=== PATIENT | male | born 1945 | race Caucasian/White ===

== ENCOUNTER → 2024-03-08 14:37 | Outpatient (REF) | payer OTHER, MEDICARE, SELFPAY | LOC: RAD 14:37 | PROVIDERS: ATTENDING PHYSICIAN Nurse Practitioner Family | DX: R47.89 Other speech disturbances (principal) | CPT/HCPCS: 70450 ==

== ENCOUNTER → 2024-07-24 11:12 | Outpatient (REF) | payer OTHER, SELFPAY | LOC: HWRCS 11:12 | PROVIDERS: ATTENDING PHYSICIAN Student in an Organized Health Care Education/Training Program; FAMILY PHYSICIAN Nurse Practitioner Family | DX: I10 Essential (primary) hypertension (principal); I35.0 Nonrheumatic aortic (valve) stenosis | CPT/HCPCS: 93306 ==

== ENCOUNTER 2025-04-20 11:44 | Emergency (ER) | payer OTHER, SELFPAY ==
[2025-04-20] VITALS (7 sets, daily range): BP systolic 130–149; BP diastolic 62–81; BMI 22.8
[2025-04-20 12:05] LABS: Glucose - Point of Care 127 mg/dl (70-99)
[2025-04-20 12:21] LABS: Hematocrit 35.8 % (39.0-52.0); Hemoglobin 12.5 g/dL (13.0-18.0); Mean Corp Hgb Conc. 34.9 g/dL (33.0-37.0); Mean Corpuscular Volume 92.5 fL (80.0-94.0); Nucleated Red Blood Cells % 0 % (-); Platelet Count 228 10^3/uL (130-400); Red Cell Dist. Width 12.4 % (11.5-14.5)
[2025-04-20 12:30] LABS: ALT (SGPT) 14 U/L (0-50); AST (SGOT) 21 U/L (17-59); Albumin 4.5 g/dl (3.5-5.0); Alkaline Phosphatase 79 U/L (38-126); Blood Urea Nitrogen 30 mg/dl (9-20); Calcium 9.1 mg/dl (8.4-10.2); Carbon Dioxide 25 mmol/L (22-30); Chloride 99 mmol/L (98-107); Estimated Creatinine Clearance 28 ml/min; Glucose 123 mg/dl (70-99); Potassium 4.5 mmol/L (3.5-5.1); Sodium 131 mmol/L (135-145); Total Protein 7.1 g/dl (6.3-8.2); eGFR 35.00
--- NOTE | 2025-04-20 12:37 | ED.GENMED ---
History of Present Illness
General
Chief Complaint: Fainting/Passed Out
Source: patient
Exam Limitations: none
Time Seen by Provider: 04/20/25 12:22
History of Present Illness
History of Present Illness:
79-year-old male with remote history of stroke resulting in right sided deficit presents via EMS from [facility] after syncopal episode. He was sitting and started to feel lightheaded and then was noticed by the person sitting next to him that he
slumped over. There was no preceding chest pain. He denies any current chest pain. He hit his head when he fell and they noted a laceration. He is not anticoagulated other than a baby aspirin. No neck pain. No other complaints
Phy Exam
Physical Exam
Physical Exam:
General: Well-appearing male no acute respiratory distress
HEENT: Normal cephalic laceration noted to the right forehead measuring 1.5 cm superficial in nature oriented in the vertical direction
Heart: Regular rate and rhythm
Lungs: Clear no wheeze
Neurologic exam: Alert and oriented x 3 chronic dysarthria without any obvious motor deficit otherwise
Musculoskeletal exam: The spine is nontender
Course
Orders/Labs/Results
Orders:
Orders
04/20/25 11:52
EKG [Electrocardiogram (*1)] Urgent
Reason for Study: Syncope
EKG- Treatment ONCE
04/20/25 12:05
CBC/With Diff [Complete Blood Count/With Diff] Urgent
Comprehensive Metabolic Panel Urgent
04/20/25 13:06
0.9% Sodium Chloride 1000 ml [Nss] 1,000 ml IV BOLUS
04/20/25 13:12
CT Head W/o Iv Contrast Urgent
Comment:
Reason For Exam: fall, head strike
Abnormal Lab Results
04/20/25 04/20/25
12:03 12:05
WBC 4.5 L 10^3/uL
(4.8-10.8)
RBC 3.87 L 10^6/uL
(4.70-6.10)
Hgb 12.5 L g/dL
(13.0-18.0)
Hct 35.8 L %
(39.0-52.0)
MCH 32.3 H pg
(27.0-31.0)
Absolute Lymphs (auto) 0.8 L 10^3/uL
(1.2-3.4)
Lymphocytes % 18.0 L %
(20.5-51.1)
Sodium 131 L mmol/L
(135-145)
BUN 30 H mg/dl
(9-20)
Creatinine 1.9 H mg/dL
(0.7-1.3)
Glucose 123 H mg/dl
(70-99)
POC Glucose 127 H mg/dl
(70-99)
04/20/25 12:05
04/20/25 12:05
Vital Signs
Initial and Last Documented VS:
Initial Vital Signs
Pulse Resp
72 24
04/20/25 11:52 04/20/25 11:52
Last Documented Vital Signs
Temp Pulse Resp BP Pulse Ox
98.4 F 88 18 130/62 100
04/20/25 12:00 04/20/25 13:00 04/20/25 13:00 04/20/25 13:00 04/20/25 13:00
MDM/Problems Addressed
Differential Diagnosis Includes:
Syncope. Question vasovagal versus arrhythmia versus anemia
EKG shows sinus rhythm without ischemic changes will check labs.
Laceration. This was superficial in nature. This was cleansed with saline and held in approximation with skin adhesive.
*Pulse Oximetry
SaO2: 97
Oxygen Mode of Delivery: Room air
Patient hypoxic: no
*Critical Care Note
Total Time (30-74mins, 75-104mins- exclusive of procedures): Not Applicable
Update Note
Update Note:
CT of the head negative. Patient was hydrated. He has been up on his feet a couple times to the bathroom and is ambulating well. No further lightheadedness. No arrhythmias noted on the monitor. Labs reviewed. His sign of volume depletion or
dehydration but this was replenished here. No indication for admission stable for discharge I suspect vasovagal versus orthostatic
ED Attending Note
-
Portions of this chart may have been created with voice recognition software.� Occasional wrong word or��sound alike� substitutions may have occurred due to the inherent limitations of voice recognition software.
Discharge Plan
Departure
Patient Disposition: Home (Routine Discharge)
Date of Disposition: 04/20/25
Time of Disposition: 15:20
Patient with high blood pressure during this ER visit?: No
Discharge Problem:
Syncope
Instructions: Syncope (Fainting) (DC)
Prescriptions:
No Action
triamterene-hydrochlorothiazid 1 EACH tablet
1 ea PO DAILY
ascorbic acid (vitamin C) [Vitamin C] 1,000 MG tablet
1,000 mg PO DAILY
atorvastatin 20 MG tablet
20 mg PO DAILY
calcium carbonate-vitamin D3 1 EACH tablet
1 ea PO DAILY
amlodipine 10 MG tablet
10 mg PO DAILY
ketoconazole 1 APPLIC cream
1 applic topical PRN PRN (Reason: unk)
clopidogrel 75 MG tablet
75 mg PO DAILY Qty: 30 2RF
aspirin 81 MG tablet,delayed release (DR/EC)
81 mg PO DAILY 0RF
Referrals:
Britta Woods CRNP [Family Provider, Family Practice]
Activity Restrictions/Additional Instructions:
Stay hydrated. Rest. Turn if worse otherwise follow-up with your doctor
Interventions
Interventions:
*Risk Screen - Suicide Last Done: 04/20/25 11:54
*General Assessment Last Done: 04/20/25 11:54
*Neglect/Abuse Screening Last Done: 04/20/25 11:54
ED- Cardiac Assessment Last Done: 04/20/25 13:17
ED- Neurological Assessment Last Done: 04/20/25 13:17
Discharge Date and Time
Print Language: MONTENEGRIN
[2025-04-20] MEDS: NSS 1000 IV (13:07)
== END 2025-04-20 16:00 | disposition home or self-care (01) ==
LOC: EMR 11:44
PROVIDERS: EMERGENCY PHYSICIAN Emergency Medicine; FAMILY PHYSICIAN Nurse Practitioner Family
DX: R55 Syncope and collapse (principal); Z86.73 Personal history of transient ischemic attack (TIA), and cerebral infarction without residual deficits
CPT/HCPCS: 99284; 96360; 96361; 70450; 80053; 82962; 85025; 93005